=== PATIENT | female | born 1985 | race Caucasian/White ===

== ENCOUNTER 2019-12-17 13:40 | Emergency (ER) | payer OTHER, SELFPAY ==
[2019-12-17 13:52] VITALS: BP 117/79; PULSE 81; RESP 20; TEMP 37.6; O2SAT 100
--- NOTE | 2019-12-17 14:04 | ED.GENADULT ---
HPI - General Adult General Chief complaint: Urogenital-Female Stated complaint: Possible STD; finger injury on Right hand Time Seen by Provider: 12/17/19 14:04 Source: patient and RN notes reviewed Mode of arrival: ambulatory Limitations: no limitations History of Present Illness HPI narrative: 34-year-old female presents with vaginal irritation 1.5 weeks. She was also allegedly contacted on Facebook (before 12/08/19) by a female that informed her she tested POSITIVE for Gonorrhea and Chlamydia and was having unprotected sex with her currently ex-boyfriend. No treatment. Two days ago noticed thick white then green-yellow vaginal discharge. No significant pelvic pain. No dysuria. Denies fever or chills. No history of STDs. No new partners. Sexually active. Unprotected intercourse with one partner. Denies multiple partners. Does not douche. Exacerbating factors consist of urinating. Denies hematuria or vaginal bleeding. No flank pain. Denies nausea, vomiting, and abdominal pain.? Tolerating liquids well.? Remains active. Denies being , LMP, 5 days ago. The patient reports she have not been diagnosed with COVID-19. The patient reports she is not waiting for the results of a COVID-19 lab test. The patient reports she do not have fever, chills, weakness, fatigue, or myalgia. The patient reports she do not have a new or worsening cough or shortness of breath. Denies chest pain. The patient reports she do not have any rhinorrhea, congestion, sore throat, and diarrhea. Denies recent traveling. Denies concerns for COVID-19 or exposures been home with limited outdoor exposure except for essential household needs, work, and return home. At this time, patient is not suspected of having COVID-19. Complains of needing re-evaluation of Right 3rd finger injured 2 weeks ago. Denies RT 3rd finger pain and swelling. No pain relieves needed. Denies numbness or tingling. No weakness of finger(s). Denies fever or chills. Denies immobility. No exacerbation is movement or palpation of finger. Dominant hand is RIGHT HAND. Denies break in skin or drainage. Some parts of this dictation were generated by voice recognition software and may contain typographical and/or grammatical inaccuracies. Related Data Home Medications Medication Instructions Recorded Confirmed buspirone mg 12/17/19 oxcarbazepine 12/17/19 propranolol 12/17/19 trazodone 12/17/19 Allergies Allergy/AdvReac Type Severity Reaction Status Date / Time codeine Allergy Unknown Verified 10/01/19 12:35 Review of Systems Review of Systems: Narrative: CONSTITUTIONAL: Denies fever, chills, sweats. EYES: Denies visual changes, redness, discharge. ENT: Denies rhinorrhea, congestion, sore throat, otalgia. CARDIOVASCULAR: Denies chest pain, palpitations, edema. RESPIRATORY: Denies dyspnea, wheezing, cough. GASTROINTESTINAL: Denies abdominal pain, nausea, vomiting, diarrhea. GENITOURINARY: Complains of vaginal irritation, abnormal discharge. Denies dysuria, hematuria. SKIN: Denies rash or itching. MUSCULOSKELETAL: Denies acute back pain, joint pain, or myalgia. NEUROLOGIC: Denies numbness or focal weakness. PSYCHIATRIC: Denies anxiety or depression. All systems reviewed & are unremarkable except as noted in HPI and below. [facility] Past Medical History Medical History (Updated 12/18/19 @ 00:00 by Anselmo Cotter) Addiction to drug Anxiety Umbilical hernia Surgical History Surgical History (Updated 12/17/19 @ 14:58 by USHA Montoya) History of tonsillectomy History of tubal ligation History of tympanostomy History of umbilical hernia repair Family History Family History (Updated 12/17/19 @ 14:27 by USHA Montoya) Mother , Unknown type Cancer Father Unknown family medical history Other Family history of thyroid disease Social History Social History (Updated 12/17/19 @ 14:28 by USHA Montoya)
--- NOTE | 2019-12-17 14:19 | PC.NURSE ---
plaque maker in with [facility] tech to do vag. exam.
--- NOTE | 2019-12-17 14:25 | PC.NURSE ---
in br to obtain ua spec.
[2019-12-17] MEDS: cefTRIAXone 250 MG VIAL IM (14:35)
[2019-12-17] MEDS: LIDOCAINE HCL 1% LOCAL INJ 20 ML VIAL INFILTRATE (14:35)
[2019-12-17] MEDS: AZITHROMYCIN 250 MG TABLET 1000 MG PO (14:36)
== END 2019-12-17 14:58 | disposition home or self-care (01) ==
PROVIDERS: Emergency Provider Nurse Practitioner Family
DX: N76.0 Acute vaginitis (principal); F17.210 Nicotine dependence, cigarettes, uncomplicated
CPT/HCPCS: 81003; 87491; 87591; 87661; 96372; 99214; A9270; G0463; J0696

== ENCOUNTER 2020-07-04 15:57 | Emergency (ER) | payer OTHER, SELFPAY ==
--- NOTE | 2020-07-04 16:15 | ED.GENADULT ---
HPI - General Adult General Chief complaint: Dental/Oral Stated complaint: Tooth Pain Time Seen by Provider: 07/04/20 16:15 Source: patient and RN notes reviewed Mode of arrival: ambulatory Limitations: no limitations History of Present Illness HPI narrative: 34-year-old female presents with complaints of dental pain for the past 7 days. Abi reports dental pain has increased over the past 72 hours, radiates into LT ear. Ibuprofen last on 07/03/20 with little to no relief. Denies any drainage. No fever. No jaw swelling. No neck swelling. No limitation with speaking or swallowing. Has history of dental caries. Has not seen a dentist recently. No dental trauma. No oral lesions. Exacerbating factors consist of chewing on LT side, eating and drinking cold items. Relieving factors not eating on LT side and avoiding cold items. No dentures or bridges. LMP 07/04/2020. Tolerating liquids well. Remains active. The patient reports she have not been diagnosed with COVID-19. The patient reports she is not waiting for the results of a COVID-19 lab test. The patient reports she do not have chills, weakness, or fatigue. The patient reports she do not have a new or worsening cough or shortness of breath. Denies chest pain. The patient reports she do not have any rhinorrhea, congestion, sore throat, loss of taste or smell, nausea, vomiting, abdominal pain, and diarrhea. Denies recent traveling. Denies concerns for COVID-19 or exposures been home with limited outdoor exposure except for essential household needs and return home. At this time, patient is not suspected of having COVID-19. Some parts of this dictation were generated by voice recognition software and may contain typographical and/or grammatical inaccuracies. Related Data Allergies Allergy/AdvReac Type Severity Reaction Status Date / Time codeine Allergy Unknown Verified 07/04/20 16:18 Review of Systems Review of Systems: Narrative: CONSTITUTIONAL: Denies fever, chills, sweats. EYES: Denies visual changes, redness, discharge. ENT: Denies rhinorrhea, congestion, sore throat, otalgia. Complains of LT upper dental pain. CARDIOVASCULAR: Denies chest pain, palpitations, edema. RESPIRATORY: Denies dyspnea, wheezing, cough. GASTROINTESTINAL: Denies abdominal pain, nausea, vomiting, diarrhea. SKIN: Denies rash or itching. MUSCULOSKELETAL: Denies acute back pain, joint pain, or myalgia. NEUROLOGIC: Denies numbness or focal weakness. PSYCHIATRIC: Denies anxiety or depression. All systems reviewed & are unremarkable except as noted in HPI and below. [facility] Past Medical History Medical History Addiction to drug Anxiety Umbilical hernia Surgical History Surgical History History of tonsillectomy History of tubal ligation History of tympanostomy History of umbilical hernia repair Family History Family History Mother , Unknown type Cancer Father Unknown family medical history Other Family history of thyroid disease Social History Social History (Updated 07/04/20 @ 16:39 by USHA Montoya) Years smoked: 15 Smoking status: Current every day smoker Tobacco type: cigarettes Second hand tobacco smoke exposure: No Alcohol intake: current Substance use: current Substance use type: marijuana Living arrangements: with family Occupation/Education: unemployed Gender identity (if verbalized by the patient): Female Sexual Orientation (if Verbalized by the Patient): Straight or Heterosexual Comments At time of signature, agree with nurse past medical, surgical, social, and family history. There is no relevant family history pertinent to the presenting complaint. Exam Narrative: Exam Narrative: GENERAL: This is a well-nourished, well-developed patient, in
[2020-07-04 16:18] VITALS: BP 121/86; PULSE 79; RESP 18; TEMP 37.1; O2SAT 100
== END 2020-07-04 16:30 | disposition home or self-care (01) ==
PROVIDERS: Emergency Provider Nurse Practitioner Family
DX: K02.9 Dental caries, unspecified (principal); K08.89 Other specified disorders of teeth and supporting structures
CPT/HCPCS: 99213; G0463